=== PATIENT | male | born 1960 | race Caucasian/White ===

== ENCOUNTER → 2016-11-28 | Outpatient (CLI) | payer BC ==
--- NOTE | 2016-11-28 08:07 | CT ---
EXAMINATION TYPE: CT sinus wo con DATE OF EXAM: 11/28/2016 COMPARISON: Previous study dated 07/13/2015 HISTORY: Chronic sinusitis CT DLP: 583.70 mGycm Automated exposure control for dose reduction was used. FINDINGS: Visualized intracranial structures are normal. Both orbits appear normal. Soft tissues are unremarkable. Visualized portions of the mastoid air cells are clear. The paranasal sinuses are clear. The infundib miguel are patent bilaterally. IMPRESSION: NORMAL CT SCAN OF THE PARANASAL SINUSES.
== END | disposition home or self-care (01) ==
LOC: RADCTMAIN 07:22
PROVIDERS: ATTEND Otolaryngology Otolaryngology/Facial Plastic Surgery
DX: J32.9 Chronic sinusitis, unspecified (principal)
CPT/HCPCS: 70486

== ENCOUNTER → 2017-08-10 | Outpatient (CLI) | payer BC ==
[2017-08-10 18:37] LABS: HGB 14.9 gm/dL (13.0-17.5); MCH 28.8 pg (25.0-35.0); MCHC 33.9 g/dL (31.0-37.0); MCV 84.9 fL (80.0-100.0); Mean Platelet Volume 6.9; Platelet Count 205 k/uL (150-450); RBC 5.19 m/uL (4.30-5.90); RDW 13.7 % (11.5-15.5); WBC 6.6 k/uL (3.8-10.6)
[2017-08-10 18:42] LABS: ALT 61 U/L (21-72); AST 50 U/L (17-59); Albumin 4.5 g/dL (3.5-5.0); Alkaline Phosphatase 65 U/L (38-126); Anion Gap 11 mmol/L; Blood Urea Nitrogen 16 mg/dL (9-20); Carbon Dioxide 26 mmol/L (22-30); Chloride 105 mmol/L (98-107); Glucose 103 mg/dL (74-99); Potassium 4.1 mmol/L (3.5-5.1); Sodium 142 mmol/L (137-145); Total Bilirubin 0.4 mg/dL (0.2-1.3); Total Protein 7.4 g/dL (6.3-8.2)
[2017-08-10 18:57] LABS: T4, Free (Free Thyroxine) 0.89 ng/dL (0.78-2.19)
[2017-08-10 19:11] LABS: Prostate Specific Antigen 0.73 ng/mL (0.00-4.00)
[2017-08-11 00:57] LABS: Thyroid Peroxidase Antibodies 31.1 U/mL (0.0-60.0)
[2017-08-11 01:04] LABS: Vitamin D 25 Hydroxy 14.7 ng/mL (30.0-100.0)
== END | disposition home or self-care (01) ==
LOC: MMGSC 15:46
PROVIDERS: ATTEND Obstetrics & Gynecology
DX: E29.1 Testicular hypofunction (principal)
CPT/HCPCS: 36415; 80053; 82306; 82670; 84153; 84402; 84403; 84436; 84439; 84443; 84481; 85027; 86376

== ENCOUNTER → 2017-09-11 | Outpatient (CLI) | payer BC ==
[2017-09-11 18:56] LABS: ALT 48 U/L (21-72); AST 40 U/L (17-59); Albumin 4.5 g/dL (3.5-5.0); Alkaline Phosphatase 56 U/L (38-126); Anion Gap 10 mmol/L; Blood Urea Nitrogen 11 mg/dL (9-20); Calcium 9.9 mg/dL (8.4-10.2); Carbon Dioxide 28 mmol/L (22-30); Chloride 102 mmol/L (98-107); Glucose 98 mg/dL (74-99); Potassium 4.3 mmol/L (3.5-5.1); Sodium 140 mmol/L (137-145); Total Bilirubin 0.5 mg/dL (0.2-1.3); Total Protein 7.4 g/dL (6.3-8.2)
[2017-09-12 02:15] LABS: Hepatitis C IgG Antibody Non-Reactive (Non-Reactive)
== END | disposition home or self-care (01) ==
LOC: MMGSC 15:37
PROVIDERS: ATTEND Internal Medicine Gastroenterology
DX: K76.0 Fatty (change of) liver, not elsewhere classified (principal)
CPT/HCPCS: 36415; 80053; 86803; 87340

== ENCOUNTER → 2018-08-31 | Outpatient (CLI) | payer BC ==
[2018-08-31 14:41] LABS: HGB 18.8 gm/dL (13.0-17.5); MCH 29.7 pg (25.0-35.0); MCHC 33.7 g/dL (31.0-37.0); MCV 88.2 fL (80.0-100.0); Mean Platelet Volume 6.6; Platelet Count 188 k/uL (150-450); RBC 6.32 m/uL (4.30-5.90)
[2018-08-31 14:43] LABS: HCT 55.8 % (39.0-53.0)
== END | disposition home or self-care (01) ==
LOC: LABWHC1 13:48
PROVIDERS: ATTEND Obstetrics & Gynecology
DX: E29.1 Testicular hypofunction (principal)
CPT/HCPCS: 82670; 85027; 84402; 84403; 36415; G0103

== ENCOUNTER → 2019-02-26 | Outpatient (CLI) | payer BC ==
[2019-02-26 17:31] LABS: HCT 54.5 % (39.0-53.0); HGB 18.5 gm/dL (13.0-17.5); MCH 29.4 pg (25.0-35.0); MCHC 33.9 g/dL (31.0-37.0); MCV 86.8 fL (80.0-100.0); Mean Platelet Volume 6.7; Platelet Count 201 k/uL (150-450); RBC 6.27 m/uL (4.30-5.90); RDW 15.5 % (11.5-15.5); WBC 9.2 k/uL (3.8-10.6)
== END | disposition home or self-care (01) ==
LOC: LABWHC1 16:53
PROVIDERS: ATTEND Obstetrics & Gynecology
DX: E34.50 Androgen insensitivity syndrome, unspecified (principal)
CPT/HCPCS: 36415; 82670; 84402; 84403; 85027

== ENCOUNTER → 2019-08-29 | Outpatient (CLI) | payer BC ==
[2019-08-29 17:31] LABS: HCT 48.9 % (39.0-53.0); HGB 16.3 gm/dL (13.0-17.5); MCH 29.2 pg (25.0-35.0); MCHC 33.2 g/dL (31.0-37.0); Mean Platelet Volume 6.9; Platelet Count 216 k/uL (150-450); RBC 5.56 m/uL (4.30-5.90); RDW 13.7 % (11.5-15.5); WBC 7.8 k/uL (3.8-10.6)
== END | disposition home or self-care (01) ==
LOC: LABWHC1 17:06
PROVIDERS: ATTEND Obstetrics & Gynecology
DX: E34.50 Androgen insensitivity syndrome, unspecified (principal)
CPT/HCPCS: 36415; 85027

== ENCOUNTER → 2020-04-07 | Outpatient (CLI) | payer BC ==
[2020-04-07 16:16] LABS: HCT 50.3 % (39.0-53.0); MCH 30.4 pg (25.0-35.0); MCHC 33.7 g/dL (31.0-37.0); MCV 90.2 fL (80.0-100.0); Mean Platelet Volume 6.6; Platelet Count 202 k/uL (150-450); RBC 5.58 m/uL (4.30-5.90); RDW 13.6 % (11.5-15.5); WBC 5.7 k/uL (3.8-10.6)
[2020-04-08 10:35] LABS: Estradiol 16.3 pg/mL
== END | disposition home or self-care (01) ==
LOC: LABWHC1 15:43
PROVIDERS: ATTEND Obstetrics & Gynecology
DX: R53.83 Other fatigue (principal); E34.50 Androgen insensitivity syndrome, unspecified
CPT/HCPCS: 82670; 85027; 84403; 82306; 36415; G0103